=== PATIENT | female | born 1985 ===

== ENCOUNTER 2018-03-27 08:03 | Emergency (ER) | payer MEDICAID ==
[2018-03-27 09:10] VITALS: BMI 31.9
[2018-03-27 09:16] VITALS: BP 112/82; PULSE 91; RESP 18; TEMP 98.4; O2SAT 100
--- NOTE | 2018-03-27 09:26 | ED PDOC ---
Arrival/HPI - General Chief Complaint: Flu-like Symptoms Historian: Patient - History of Present Illness Narrative History of Present Illness (Text): 03/27/18 09:23 33 y/o female, no significant pmh, nkda, c/o runny nose/cough/fever/bodyache x 2 days with +sick flu contact at home. Pt. has no abdominal or pelvic pain, no headache or neck stiffness, no rash, no urinary symptoms, no other medical or psychological complaints. Past Medical History - Provider Review Nursing Documentation Reviewed: Yes - Reproductive Currently : No - Cardiac Hx Cardiac Disorders: No - Pulmonary Hx Respiratory Disorders: No - Neurological Hx Neurological Disorder: No - HEENT Hx HEENT Disorder: No - Renal Hx Renal Disorder: No - Endocrine/Metabolic Hx Endocrine Disorders: Yes Hx Diabetes Mellitus Type 2: Yes - Hematological/Oncological Hx Blood Disorders: Yes Hx Anemia: Yes Hx Blood Transfusions: Yes - Integumentary Hx Dermatological Disorder: No - Musculoskeletal/Rheumatological Hx Musculoskeletal Disorders: No - Gastrointestinal Hx Gastrointestinal Disorders: No - Genitourinary/Gynecological Hx Genitourinary Disorders: No - Psychiatric Hx Psychophysiologic Disorder: No Hx Substance Use: No - Surgical History Hx Section: Yes (2012) Hx Gastric Bypass Surgery: Yes (2007) - Anesthesia Hx Anesthesia: Yes Hx Anesthesia Reactions: No Hx Malignant Hyperthermia: No Family/Social History - Physician Review Nursing Documentation Reviewed: Yes Family/Social History: Unknown Family HX Smoking Status: Never Smoked Hx Alcohol Use: No Hx Substance Use: No Allergies/Home Meds Allergies/Adverse Reactions: Allergies No Known Allergies Allergy (Verified 03/27/18 09:17) Review of Systems - Review of Systems Constitutional: Fatigue, Fevers Eyes: absent: Vision Changes ENT: Rhinorrhea. absent: Hearing Changes Respiratory: Cough, Sputum. absent: SOB, Wheezing Cardiovascular: absent: Chest Pain Gastrointestinal: absent: Abdominal Pain, Diarrhea, Nausea, Vomiting Musculoskeletal: Myalgias. absent: Arthralgias Skin: absent: Rash, Pruritis Neurological: absent: Headache, Dizziness Psychiatric: absent: Anxiety, Depression, Suicidal Ideation Physical Exam Vital Signs Reviewed: Yes Vital Signs Temp Pulse Resp BP Pulse Ox 03/27/18 09:10 98.4 F 91 H 18 112/82 100 Temperature: Afebrile Blood Pressure: Normal Pulse: Regular Respiratory Rate: Normal Appearance: Positive for: Well-Appearing, Non-Toxic, Comfortable Pain Distress: Mild Mental Status: Positive for: Alert and Oriented X 3 - Systems Exam Head: Present: Atraumatic, Normocephalic Pupils: Present: PERRL Extroacular Muscles: Present: EOMI Conjunctiva: Present: Normal Ears: Present: NORMAL TM, Normal Canal. No: Erythema Mouth: Present: Moist Mucous Membranes Pharnyx: No: ERYTHEMA, EXUDATE, TONSILS ENLARGED Nose (External): Present: Atraumatic. No: Abrasion, Contusion, Laceration Nose (Internal): Present: Normal Inspection, No Active Bleeding, Rhinorrhea. No: Septal Hematoma, Epistaxis Neck: Present: Normal Range of Motion, Trachea Midline. No: MIDLINE TENDERNESS, Paraspinal Tenderness, Lymphadenopathy Respiratory/Chest: Present: Clear to Auscultation, Good Air Exchange. No: Respiratory Distress, Accessory Muscle Use, Wheezes, Decreased Breath Sounds, Rales, Retracting, Rhonchi, Tachypneic, Tender to Palpation Cardiovascular: Present: Regular Rate and Rhythm, Normal S1, S2. No: Murmurs Abdomen: No: Tenderness, Distention, Peritoneal Signs, Rebound, Guarding Back: Present: Normal Inspection Upper Extremity: Present: Normal Inspection. No: Cyanosis, Edema Lower Extremity: Present: Normal Inspection. No: Edema Neurological: Present: GCS=15, CN II-XII Intact, Speech Normal, Motor Func Grossly Intact, Gait Normal, Memory Normal Skin: Present: Warm, Dry, Normal Color. No: Rashes Psychiatric: Present: Alert, Oriented x 3, Normal Insight, Normal Concentration Medical Decision Making ED Course and Treatment: 03/27/18 09:25 -rapid flu -zithromax -preg -observe and reassess 03/27/18 10:03 -Urine hcg is negative -Rapid flu is positive -Discharge home with zithromax, tamiflu, bromfed dm, motrin, bed rest, stay hydrated, follow up with your own pmd within 2 days, return to the ER for any new or worsening signs or symptoms. - PA / PEST CONTROLLER / Resident Statement / has reviewed & agrees with the documentation as recorded. Disposition/Present on Arrival - Present on Arrival Any Indicators Present on Arrival: No History of DVT/PE: No History of Uncontrolled Diabetes: No Urinary Catheter: No History of Decub. Ulcer: No History Surgical Site Infection Following: None - Disposition Have Diagnosis and Disposition been Completed?: Yes Diagnosis: Influenza, URI (upper respiratory infection) Disposition: HOME/ ROUTINE Disposition Time: 10:03 Patient Plan: Discharge Patient Problems: Current Active Problems Problem Status Onset Influenza Acute URI (upper respiratory infection) Acute Condition: GOOD Additional Instructions: -Discharge home with zithromax, tamiflu, bromfed dm, motrin, bed rest, stay hydrated, follow up with your own pmd within 2 days, return to the ER for any new or worsening signs or symptoms. Prescriptions: Azithromycin [Zithromax] 250 mg PO DAILY #4 tab Brompheniramine/Pseudoephed/Dm [Bromfed Dm Cough 118 ml] 10 ml PO QID PRN #250 ml PRN Reason: Other Ibuprofen [Motrin Tab] 600 mg PO QID PRN #30 tab PRN Reason: Other Oseltamivir Phosphate [Tamiflu] 75 mg PO BID #10 capsule Forms: [facility] (Sinhala), WORK NOTE
== END 2018-03-27 10:17 | disposition home or self-care (01) ==
LOC: ED 08:03
DX: J11.1 Influenza due to unidentified influenza virus with other respiratory manifestations (principal); E11.9 Type 2 diabetes mellitus without complications; Z98.84 Bariatric surgery status